=== PATIENT | male | born 1975 | race Asian ===

== ENCOUNTER 2025-05-30 08:10 | Day surgery (SDC) | payer OTHER ==
[~2025-05-30] VITALS: Ht 165.1 cm; Wt 56.8 kg
[~2025-05-30 08:10] MED LIST: BENZ2TAB84 PO; DIVA125T32 PO; DOCU-385 PO; LEVO15TA7 PO; LEVO50TA11 PO; OLAN7.5T22 PO; SODIUM CHLORIDE 0.9% 1,000 ML ONE; TOPI-258 PO
[2025-05-30] MEDS: SODIUM CHLORIDE 0.9% 1,000 ML IV ONE (08:46)
[2025-05-30] MEDS ORDERED: PROPOFOL 1% 20 ML VIAL IVP ONE (12:00)
[2025-05-30] MEDS ORDERED: LIDOCAINE/PF 2% 5 ML VIAL ONE (12:00)
== END 2025-05-30 10:20 | disposition home or self-care (01) ==
LOC: SDS 08:10
PROVIDERS: ATTEND Internal Medicine
DX: R63.4 Abnormal weight loss (principal); R10.13 Epigastric pain; K29.50 Unspecified chronic gastritis without bleeding; E03.9 Hypothyroidism, unspecified; F84.0 Autistic disorder; Z98.890 Other specified postprocedural states; Z79.899 Other long term (current) drug therapy
CPT/HCPCS: 43239; 88342; 88305; C1769; J2704; J3490; J7030